=== PATIENT | female | born 1950 | race Caucasian/White ===

== ENCOUNTER 2019-02-13 00:24 | Inpatient (IN) ==
[2019-02-13] MEDS ORDERED: FAMOTIDINE 20 MG/2 ML VIAL IVP ONE (00:38)
[2019-02-13] MEDS ORDERED: Sodium Chloride 0.9% 1,000 ML PRIMARY IV ONE (00:38)
[2019-02-13] MEDS ORDERED: ONDANSETRON 4 MG/2 ML VIAL IVP ONE (00:38)
[2019-02-13 00:53] LABS: Hemoglobin [HGB] 15.7 g/dL (12.0-16.0); MEAN CORPUSCULAR VOLUME 95.3 FL (81-99); RED BLOOD COUNT 4.93 10^6/uL (4.20-5.40)
[2019-02-13 00:54] LABS: BASOPHILS # (AUTO) 0.02 10*3/UL; BASOPHILS % (AUTO) 0.2 % (0-1); EOSINOPHILS # (AUTO) 0.01 10*3/UL; EOSINOPHILS % (AUTO) 0.1 % (0-8); LYMPHOCYTES # (AUTO) 1.49 10*3/uL; MEAN CORPUSCULAR HGB CONC 33.4 g/dL (33-37); MEAN PLATELET VOLUME 9.4 FL (7.4-12.2); MONOCYTES # (AUTO) 0.54 10*3/UL (0.3-0.8); MONOCYTES % (AUTO) 5.3 % (5-15); NEUTROPHILS # (AUTO) 8.08 10*3/UL; NEUTROPHILS % (AUTO) 79.3 % (50-80); PLATELET MORPHOLOGY COMMENT NORMAL MORPHOLOGY (NORM); RBC MORPHOLOGY COMMENT NORMAL MORPHOLOGY (NORM); WBC MORPHOLOGY COMMENT NORMAL MORPHOLOGY (NORM)
[2019-02-13 01:03] LABS: BLOOD UREA NITROGEN 16 mg/dL (7-22)
[2019-02-13 02:14] LABS: BILIRUBIN,URINE NEGATIVE (NEG); CLARITY,URINE CLEAR (CLEAR); COLOR,URINE YELLOW (Y); GLUCOSE, URINE (UA) NEGATIVE (NEG); OCCULT BLOOD,URINE Trace-intact (NEG); PROTEIN,URINE NEGATIVE (NEG); UROBILINOGEN,URINE 0.2 EU/dL (0.2)
[2019-02-13 02:15] LABS: URINE SAMPLE TYPE CLEAN CATCH URINE
[2019-02-13] MEDS ORDERED: ROCURONIUM 10 MG/1 ML - 5 ML VIAL IVP ONE ×2 (03:23→05:01)
[2019-02-13] MEDS ORDERED: MIDAZOLAM HCL 2 MG/2 ML VIAL ONE (03:35)
[2019-02-13] MEDS ORDERED: PROPOFOL 10 MG/1 ML (200 MG/20 ML) VIAL IV ONE (03:36)
[2019-02-13] MEDS ORDERED: LIDOCAINE MPF 2% - 5 ML (20 MG/1 ML) ONE (03:36)
[2019-02-13] MEDS ORDERED: fentaNYL Inj 250 MCG/5 ML VIAL ONE (03:36)
[2019-02-13] MEDS ORDERED: Nasal Sanitizer POPSWAB ampule 3 AMP (Nozin) PREOP DOSE ENOS SCH (03:45)
[2019-02-13] MEDS ORDERED: Lactated Ringers 1,000 ML PRIMARY IV SCH ×2 (03:45→05:45)
[2019-02-13] MEDS ORDERED: KETAMINE 100 MG/1 ML - 5 ML ONE (04:17)
[2019-02-13] MEDS ORDERED: ERTAPENEM 1 GM VIAL ONE (04:19)
[2019-02-13] MEDS ORDERED: Sodium Chloride 0.9% 100 ML IV ONE (04:19)
[2019-02-13] MEDS ORDERED: KETOROLAC 30 MG/1 ML VIAL ONE (04:40)
[2019-02-13] MEDS ORDERED: ONDANSETRON 4 MG/2 ML VIAL ONE (04:40)
[2019-02-13] MEDS ORDERED: Ertapenem Inj 1 GM in Sodium Chloride 0.9% 100 ML IV SCH (04:45)
[2019-02-13] MEDS ORDERED: Lactated Ringers 1,000 ML PRIMARY IV ONE ×2 (04:55→06:09)
[2019-02-13] MEDS ORDERED: SUGAMMADEX SODIUM 200 MG/2 ML VIAL IV ONE (05:14)
[2019-02-13] MEDS ORDERED: BUPivacaine Liposome/PF (Exparel) Inj 20ml vial INFIL ONE (05:16)
[2019-02-13] MEDS ORDERED: fentaNYL Inj 100 MCG/2 ML VIAL IVP PRN (05:41)
[2019-02-13] MEDS ORDERED: Prochlorperazine Edisylate Inj 10mg/2ml vial IVP PRN (05:41)
[2019-02-13] MEDS ORDERED: LIDOCAINE W/ SODIUM BICARB 0.5 ML SYR SUBD PRN (05:41)
[2019-02-13] MEDS ORDERED: ONDANSETRON 4 MG/2 ML VIAL IVP PRN (05:41)
[2019-02-13] MEDS: HYDROmorphone 2 MG/1 ML IVP PRN ×2 (05:52→06:01)
[2019-02-13] MEDS ORDERED: LIDOCAINE HCL 2 % 10 ML JELLY URO-JECT TOPICAL PRN (06:00)
[2019-02-13] MEDS ORDERED: Acetaminophen 1000mg Inj 1,000 MG/100 ML VIAL IV ONE (06:44)
[2019-02-13] MEDS ORDERED: NALOXONE 0.4 MG/1 ML VIAL IVP PRN (07:18)
[2019-02-13] MEDS ORDERED: KETOROLAC 15 MG/1 ML VIAL IVP PRN (07:18)
[2019-02-13] MEDS ORDERED: Keys-Morphine PCA PRN (07:18)
[2019-02-13] MEDS ORDERED: Acetaminophen 1000mg Inj 1,000 MG/100 ML VIAL IV PRN (07:18)
[2019-02-13] MEDS ORDERED: Keys-Hydromorphone PCA ONE (07:46)
[2019-02-13] MEDS: D5-1/2NS + 20mEq KCL 1,000 ML PRIMARY IV SCH ×2 (08:04→17:21)
[2019-02-13] MEDS: MORPHINE SULFATE/PF PCA 30 MG/30 ML IV SCH (08:05)
[2019-02-13] MEDS: FAMOTIDINE 20 MG/2 ML VIAL IVP SCH ×2 (08:58→21:54)
[2019-02-13] MEDS: ONDANSETRON 4 MG/2 ML VIAL IVP PRN ×2 (13:03→20:16)
[2019-02-14] MEDS: D5-1/2NS + 20mEq KCL 1,000 ML PRIMARY IV SCH ×3 (02:24→22:20)
[2019-02-14] MEDS: ONDANSETRON 4 MG/2 ML VIAL IVP PRN (02:35)
[2019-02-14 05:58] LABS: BLOOD UREA NITROGEN 6 mg/dL (7-22)
[2019-02-14 06:24] LABS: Hematocrit [HCT] 46.3 % (37.0-47.0); Hemoglobin [HGB] 15.1 g/dL (12.0-16.0); MEAN CORPUSCULAR VOLUME 97.1 FL (81-99); RED BLOOD COUNT 4.77 10^6/uL (4.20-5.40)
[2019-02-14 06:25] LABS: BASOPHILS # (AUTO) 0.02 10*3/UL; BASOPHILS % (AUTO) 0.2 % (0-1); EOSINOPHILS # (AUTO) 0.01 10*3/UL; EOSINOPHILS % (AUTO) 0.1 % (0-8); LYMPHOCYTES # (AUTO) 1.62 10*3/uL; MEAN CORPUSCULAR HGB CONC 32.6 g/dL (33-37); MEAN PLATELET VOLUME 9.5 FL (7.4-12.2); MONOCYTES # (AUTO) 0.74 10*3/UL (0.3-0.8); MONOCYTES % (AUTO) 7.7 % (5-15); NEUTROPHILS # (AUTO) 7.17 10*3/UL; NEUTROPHILS % (AUTO) 74.6 % (50-80); PLATELET MORPHOLOGY COMMENT NORMAL MORPHOLOGY (NORM); RBC MORPHOLOGY COMMENT NORMAL MORPHOLOGY (NORM); WBC MORPHOLOGY COMMENT NORMAL MORPHOLOGY (NORM)
[2019-02-14] MEDS: FAMOTIDINE 20 MG/2 ML VIAL IVP SCH ×2 (08:03→21:00)
[2019-02-15] MEDS: MORPHINE SULFATE/PF PCA 30 MG/30 ML IV SCH (01:46)
[2019-02-15] MEDS: D5-1/2NS + 20mEq KCL 1,000 ML PRIMARY IV SCH ×2 (08:43→20:13)
[2019-02-15] MEDS ORDERED: MORPHINE SULFATE 2 MG/1 ML IVP PRN (09:09)
[2019-02-15] MEDS: FAMOTIDINE 20 MG/2 ML VIAL IVP SCH ×2 (10:00→20:15)
[2019-02-15] MEDS ORDERED: Keys-Hydromorphone PCA ONE (10:08)
[2019-02-16 05:29] LABS: BASOPHILS # (AUTO) 0.02 10*3/UL; BASOPHILS % (AUTO) 0.3 % (0-1); EOSINOPHILS # (AUTO) 0.04 10*3/UL; EOSINOPHILS % (AUTO) 0.7 % (0-8); Hematocrit [HCT] 41.5 % (37.0-47.0); Hemoglobin [HGB] 13.6 g/dL (12.0-16.0); LYMPHOCYTES # (AUTO) 1.59 10*3/uL; MEAN CORPUSCULAR HGB CONC 32.8 g/dL (33-37); MEAN PLATELET VOLUME 9.8 FL (7.4-12.2); MONOCYTES # (AUTO) 0.56 10*3/UL (0.3-0.8); MONOCYTES % (AUTO) 9.4 % (5-15); NEUTROPHILS # (AUTO) 3.77 10*3/UL; RED BLOOD COUNT 4.28 10^6/uL (4.20-5.40)
[2019-02-16 05:34] LABS: PLATELET MORPHOLOGY COMMENT NORMAL MORPHOLOGY (NORM); RBC MORPHOLOGY COMMENT NORMAL MORPHOLOGY (NORM); WBC MORPHOLOGY COMMENT NORMAL MORPHOLOGY (NORM)
[2019-02-16 05:47] LABS: BLOOD UREA NITROGEN 10 mg/dL (7-22); BUN/CREATININE RATIO 14.28 (6-20)
[2019-02-16 07:35] VITALS: RESP 20
[2019-02-16] MEDS: FAMOTIDINE 20 MG/2 ML VIAL IVP SCH (09:54)
[2019-02-16 11:27] VITALS: BP 122/66; TEMP 97.9; O2SAT 98
== END 2019-02-16 13:34 | disposition home or self-care (01) | DRG 982 ==
LOC: ER 00:24 → MED/SURG 03:40 → OR 03:44 → OPS 03:45 → MED/SURG 05:46
PROVIDERS: ADMIT Surgery; ATTEND Surgery
PROC: GELAPAR (ICD-10-PCS; 2019-02-13 03:04)